=== PATIENT | male | born 1980 | race Caucasian/White ===

== ENCOUNTER 2021-01-21 16:12 | Emergency (ER) | payer SELFPAY ==
[2021-01-21] VITALS (13 sets, daily range): BP systolic 103–129; BP diastolic 67–91; PULSE 61–92; RESP 11–19; TEMP 36.6; O2SAT 96–100
[2021-01-21 17:03] LABS: Basophils Percent Auto 0.6 % (0.2-1.2); Eosinophils Absolute Auto 0.1 K/mm3 (0-0.3); Eosinophils Percent Auto 1.8 % (0-4.4); Hematocrit 39.7 % (42.0-52.0); Hemoglobin 13.1 g/dL (14.0-18.0); Immature Granulocyte Absolute 0.02 K/mm3 (0.00-0.031); Immature Granulocyte Percent A 0.3 % (0-0.5); Lymphocytes Absolute Auto 1.51 K/mm3 (0.9-3.2); Lymphocytes Percent Auto 22.7 % (18.3-44.2); Mean Corpuscular Hemoglobin 31.2 pg (26-34); Mean Corpuscular Volume 94.5 fl (80-100); Mean Platelet Volume 9.5 fl (7.4-10.4); Monocytes Absolute Auto 0.5 K/mm3 (0.1-0.6); Monocytes Percent Auto 7.1 % (2.6-8.5); Neutrophils Absolute Auto 4.5 K/mm3 (1.3-6.7); Neutrophils Percent Auto 67.5 % (45.5-73.1); Platelet Count Result 202 k/mm3 (150-375); Red Cell Distribution Width 12.3 % (11.5-14.5); White Blood Count 6.7 K/mm3 (4.5-10.0)
[2021-01-21] MEDS: SODIUM CHLORIDE 0.9% IV 1,000 ML 999 ML IV CONT (17:09)
[2021-01-21 17:12] LABS: Lipase 43 U/L (23-300)
[2021-01-21 17:13] LABS: Alanine Aminotransferase 25 U/L (4-50); Alkaline Phosphatase 61 U/L (38-126); Anion Gap 10 mmol/L (8-16); Aspartate Amino Transferase 32 U/L (17-59); Bilirubin,Total 0.8 mg/dL (0.2-1.3); Blood Urea Nitrogen 26 mg/dL (9-20); Calcium 8.9 mg/dL (8.4-10.2); Carbon Dioxide 23 mmol/L (22-30); Chloride 104 mmol/L (98-107); Estimated CRCL calculation 101 ml/min; Estimated Glomerular Filt Rate > 60; Glucose 71 mg/dL (75-110); Potassium 3.7 mmol/L (3.4-5.0); Sodium 137 mmol/L (137-145)
--- NOTE | 2021-01-21 17:34 | ED.SYNCOPE ---
HPI - Syncope General Chief Complaint: Dizziness Stated Complaint: NOT FEELING WELL Time Seen by Provider: 01/21/21 16:27 Source: patient Mode of arrival: ambulatory Limitations: no limitations History of Present Illness HPI narrative: Patient is a 40 year old male who presents in police custody. Patient screaming and angry, uncooperative. Refuses to divulge medical history. Patient reports not drinking or eating for the past few days. Patient does not answer questions about drug use and refusing to cooperate. Patient continues in handcuffs and intermittently verbally aggressive to staff. Related Data Home Medications Medication Instructions Recorded Confirmed risperidone [Risperdal] 2 mg PO HS 01/21/21 Allergies Allergy/AdvReac Type Severity Reaction Status Date / Time No Known Allergies Allergy Verified 01/21/21 16:28 Review of Systems Review of Systems: Narrative: CONSTITUTIONAL: Denies fever, chills, or sweats. EYES: Denies visual changes, redness, or discharge. ENT: Denies rhinorrhea, congestion, sore throat, or otalgia. CARDIOVASCULAR: Denies chest pain, palpitations, or edema. RESPIRATORY: Denies cough or dyspnea. GASTROINTESTINAL: Denies abdominal pain, nausea, vomiting, or diarrhea. GENITOURINARY: Denies dysuria or hematuria. SKIN: Denies rash or itching. MUSCULOSKELETAL: Denies back pain, joint pain, or myalgia. NEUROLOGIC: Denies headache, numbness, dizziness, or weakness. PSYCHIATRIC: Denies anxiety or depression. Patient refusing to answer all questions about complaints. [facility] Past Medical History Medical History (Updated 01/21/21 @ 17:45 by TOMY Coffey) Medical history unknown Surgical History Surgical History (Updated 01/21/21 @ 17:42 by TOMY Coffey) Surgical history unknown Family History Family History (Updated 01/21/21 @ 17:42 by TOMY Coffey) Other Unknown family medical history Social History Social History (Updated 01/21/21 @ 17:43 by TOMY Coffey) Social History: unknown social history, patient refusing to answer questions. Comments At the time of signature, I have reviewed and agree with nursing past medical, surgical, social, and family history unless otherwise noted. Please see nursing chart for further information. There is no relevant family history pertinent to the presenting complaint. Exam Narrative: Exam Narrative: GENERAL: Dirty, ill kempt, not cooperative, verbally aggressive HEAD: Normocephalic, atraumatic. EYES: EOMI. No redness or drainage. Conjunctiva are normal. ENT: Mucous membranes pink and moist. Nares clear. No rhinorrhea. TMs normal bilaterally. Throat normal. Uvula midline. NECK: AROM. Supple. No lymphadenopathy. CHEST: No respiratory distress. HEART: Regular rate and rhythm. No murmur appreciated. Normal peripheral pulses. EXTREMITIES: Normal range of motion. No edema. SKIN: Warm, dry, no rash. NEURO: No focal deficits. Alert and oriented x3. PSYCH: Normal affect. No signs of depression or anxiety. Course Reevaluation(s) Reevaluation #1: Patient urinated on self intentionally. Patient refusing urine sample at this time. PD at bedside. Vital Signs Vital signs: Vital Signs Temperature 36.6 C 01/21/21 16:23 Pulse Rate 77 01/21/21 16:23 Respiratory Rate 16 01/21/21 16:23 Blood Pressure 103/67 01/21/21 16:23 Pulse Oximetry 96 01/21/21 16:23 Temperature 36.6 C 01/21/21 16:23 Pulse Rate 77 01/21/21 16:23 Respiratory Rate 16 01/21/21 16:23 Blood Pressure 103/67 01/21/21 16:23 Pulse Oximetry 96 01/21/21 16:23 MDM - Syncope MDM Narrative Medical decision making narrative: Patients labs are unremarkable, patient continues to refuse UA, patient urinated on self and now refusing to urinate. Patient hydrated and fed. Alert and oriented x 3, cursing at staff and continues to be uncooperative. Patient is stable for discharge as UA and further testing r
== END 2021-01-21 18:00 ==
PROVIDERS: Emergency Medicine; Emergency Provider Nurse Practitioner
DX: E86.0 Dehydration (principal)
CPT/HCPCS: 36415; 80053; 83690; 85025; 96360; 99283; J7030